=== PATIENT | male | born 1990 | race African-American/Black ===

== ENCOUNTER 2025-09-20 09:50 | Emergency (ER) | payer MEDICAID ==
[~2025-09-20] VITALS: Ht 175.3 cm; Wt 122.7 kg
[2025-09-20 09:52] VITALS: TEMP 98.3
[2025-09-20] MEDS ORDERED: QUET25TA PO (09:58)
[2025-09-20] MEDS ORDERED: BUPR-344 PO (09:58)
[2025-09-20] MEDS ORDERED: BUPR1TAB46 SL ×2 (09:58)
[2025-09-20 10:14] VITALS: BP 144/93; PULSE 81; RESP 16; O2SAT 100
[2025-09-20] MEDS: CEPHALEXIN MONOHYDRATE 500 MG CAPSULE PO ONE (11:21)
[2025-09-20] MEDS ORDERED: CEPH-558 PO (11:24)
== END 2025-09-20 11:27 | disposition home or self-care (01) ==
LOC: EMS 09:50
DX: S01.512A Laceration without foreign body of oral cavity, initial encounter (principal); F17.210 Nicotine dependence, cigarettes, uncomplicated; Z79.891 Long term (current) use of opiate analgesic; Z79.899 Other long term (current) drug therapy; W45.8XXA Other foreign body or object entering through skin, initial encounter; Y93.89 Activity, other specified; Y92.89 Other specified places as the place of occurrence of the external cause; Y99.8 Other external cause status
CPT/HCPCS: 99283